=== PATIENT | female | born 1995 | race Caucasian/White ===

== ENCOUNTER 2021-03-16 13:15 | Outpatient (CLI) | payer SELFPAY ==
[2021-03-16 13:31] VITALS: BP 156/94; PULSE 116
[2021-03-16 13:46] VITALS: BP 124/85; PULSE 100
[2021-03-16 14:00] VITALS: BP 113/60; PULSE 96
[2021-03-16 14:15] VITALS: RESP 15; TEMP 36.2
[2021-03-16 14:26] VITALS: BMI 39.0
== END 2021-03-16 14:20 | disposition home or self-care (01) ==
LOC: OPOB 13:21 → OBGYN 13:25
PROVIDERS: Visit Provider Family Medicine
DX: O26.899 Other specified pregnancy related conditions, unspecified trimester (principal); Z3A.00 Weeks of gestation of pregnancy not specified; R10.9 Unspecified abdominal pain; N89.8 Other specified noninflammatory disorders of vagina
CPT/HCPCS: 59025; 99211

== ENCOUNTER 2021-04-11 18:27 | Outpatient (CLI) | payer SELFPAY ==
[2021-04-11] VITALS (11 sets, daily range): BP systolic 117–146; BP diastolic 76–93; PULSE 95–112; RESP 16; TEMP 36.2
[2021-04-11 19:47] LABS: Basophils % 0.2 %; Eosinophils % 0.2 %; Hematocrit 40.4 % (37.0-47.0); Hemoglobin 13.5 g/dL (11.5-15.3); Lymphocytes % 16.8 %; Mean Corpuscular HGB Conc 33.4 g/dL (30.0-36.0); Mean Corpuscular Volume 92.7 fl (81-99); Mean Platelet Volume 10.7 fL (7.4-10.4); Monocytes # 0.7 10^3/uL (0.2-0.9); Monocytes % 6.2 %; Neutrophils # 9.17 10^3/uL (1.8-7.7); Neutrophils % 76.3 %; Nucleated Red Blood Cells % 0 %; Platelet Count 227 10^3/cmm (130-400); Red Blood Count 4.36 10^6/uL (4.1-5.3)
--- NOTE | 2021-04-11 19:49 | PC.NURSE ---
Pain rated a 3/10 with contractions, but otherwise patient reports no pain.
[2021-04-11 20:07] LABS: Urine Creatinine 33 mg/dL (28-217); Urine Protein Random 4 mg/dL
[2021-04-11 20:16] LABS: UPRO/UCREAT Ratio 0.12 mg/mg CR
[2021-04-11 20:31] LABS: Alanine Aminotransferase 10 U/L (0-33); Albumin Level 3.4 g/dL (3.5-5.2); Alkaline Phosphatase 127 IU/L (35-105); Anion Gap 16.6 (5-19); Aspartate Amino Transferase 10 U/L (0-32); Blood Urea Nitrogen 7 mg/dL (6-20); Carbon Dioxide 19 mmol/L (22-29); Chloride 106 mmol/L (98-107); Globulin 2.9 g/dL (1.3-4.6); Glomerular Filtration Rate 268.9 mL/min (90-130); Glucose 112 mg/dL (65-115); Osmolality Calculated 285 mOsm/kg (285-295); Potassium 3.6 mmol/L (3.5-5.1); Sodium 138 mmol/L (136-145); Total Bilirubin 0.2 mg/dL (0.15-1.2); Total Protein 6.3 g/dL (6.6-8.7); Uric Acid 3.9 mg/dL (2.4-5.7)
[2021-04-11 20:32] LABS: Urine Appearance Clear (CLEAR); Urine Color Straw (Yellow)
[2021-04-11 20:33] LABS: Bilirubin Urine Neg (Negative); Blood Urine Neg (Negative); Glucose Urine UA Norm (Normal); Ketones Urine Negative (Negative); Nitrate Urine Negative (Negative); Protein Urine Neg (Negative); Specific Gravity, Urine 1.015 (1.005-1.030); pH Urine 6 (5-7)
[2021-04-11 20:34] LABS: Add Urine Microscopic? YES; Bacteria Urine TRACE /hpf; Leukocyte Esterase Urine Trace (Negative); Urobilinogen Urine Norm (Negative); WBC Urine 0-4 /hpf (0-5)
[2021-04-11 20:35] LABS: Add Urine Culture? No
--- NOTE | 2021-04-11 20:53 | PC.NURSE ---
HOME MEDICATIONS Patient also reports taking an herbal thyroid supplement, support tablet, and an easy birthing liquid. Patient reports that she does not know what is in the easy birthing liquid but that she takes it.
== END 2021-04-11 21:14 | disposition home or self-care (01) ==
LOC: OPOB 18:29 → OBGYN 18:31
PROVIDERS: Visit Provider Family Medicine
DX: O16.9 Unspecified maternal hypertension, unspecified trimester (principal); Z3A.00 Weeks of gestation of pregnancy not specified
CPT/HCPCS: 36415; 59025; 80053; 81001; 82570; 84156; 84550; 85025; 99211

== ENCOUNTER 2021-04-14 22:44 | Inpatient (IN) | payer SELFPAY ==
[2021-04-14 22:20] VITALS: RESP 17
[2021-04-14 22:31] VITALS: BP 148/91; PULSE 100
[2021-04-14 22:32] VITALS: TEMP 36.4
[2021-04-14 22:48] VITALS: RESP 15
[2021-04-14 23:12] LABS: Basophils % 0.1 %; Eosinophils % 0.2 %; Hematocrit 41.3 % (37.0-47.0); Hemoglobin 13.7 g/dL (11.5-15.3); Lymphocytes # 1.8 10^3/uL (0.8-4.8); Lymphocytes % 15.3 %; Mean Corpuscular HGB Conc 33.2 g/dL (30.0-36.0); Mean Corpuscular Hemoglobin 30.8 pg (28.0-34.0); Mean Corpuscular Volume 92.8 fl (81-99); Mean Platelet Volume 10.7 fL (7.4-10.4); Monocytes # 1.1 10^3/uL (0.2-0.9); Monocytes % 8.7 %; Neutrophils # 9.03 10^3/uL (1.8-7.7); Neutrophils % 75.3 %; Nucleated Red Blood Cells % 0 %; Platelet Count 233 10^3/cmm (130-400); Red Blood Count 4.45 10^6/uL (4.1-5.3)
[2021-04-14] MEDS: ampicillin 2,000 MG in sodium chloride 0.9% (plus) 50 ML 100 MG IV (23:20)
[2021-04-14] MEDS: dextrose 5%-lactated ringers 1,000 ML 125 ML IV (23:20)
[2021-04-14 23:23] VITALS: BP 108/66; PULSE 94
[2021-04-15] VITALS (26 sets, daily range): BP systolic 99–132; BP diastolic 56–84; PULSE 81–117; RESP 15–17; TEMP 35.9–37.2; O2SAT 99
[2021-04-15] MEDS: oxytocin 30 UNIT/500 ML BAG 600 UNIT IV (02:19)
[2021-04-15] MEDS: lidocaine 2% INJ 20 mL INJECTION (02:21)
--- NOTE | 2021-04-15 02:40 | P.PCNOB_ITS ---
Delivery Note: Date of delivery: April 15, 2021 Delivery: This is a 25-year-old G3, P2 at 39 weeks gestation who presented to labor and delivery in active labor. She was GBS positive and was started on ampicillin protocol. She declined an epidural for pain management. When she was 8 to 9 cm dilated she had artificial rupture of membranes with clear fluid. Rupture of membranes was less than 20 minutes prior to delivery. She had a normal spontaneous vaginal delivery of a viable female weight 3600 g Apgars 8 and 9 over an intact perineum. The was suctioned at delivery and placed on the mother's chest. The cord was clamped and cut. The placenta was delivered grossly intact and normal to inspection. There was a first-degree perineal laceration that was sutured using 3-0 chromic after injecting 1% lidocaine for anesthetic. EBL 200 mL A&P Assessment and plan (1) Normal spontaneous vaginal delivery: Status: Acute Coding Level of Care Code Acute Pipe Racker for Sunshine Cruz Diagnoses Normal spontaneous vaginal delivery O80
[2021-04-15] MEDS: miSOPROStol 200 mcg Tablet 800 MCG PR (03:12)
[2021-04-15 16:21] LABS: Hematocrit 38.1 % (37.0-47.0); Hemoglobin 12.6 g/dL (11.5-15.3); Mean Corpuscular HGB Conc 33.1 g/dL (30.0-36.0); Mean Corpuscular Hemoglobin 30.7 pg (28.0-34.0); Mean Corpuscular Volume 92.7 fl (81-99); Mean Platelet Volume 10.8 fL (7.4-10.4); Platelet Count 213 10^3/cmm (130-400); Red Blood Count 4.11 10^6/uL (4.1-5.3); Red Cell Distribution Width 13.1 % (12.1-15.1); White Blood Count 13.5 10^3/uL (4.0-10.0)
[2021-04-16 04:40] VITALS: BP 107/58; PULSE 74
[2021-04-16 04:41] VITALS: RESP 14
[2021-04-16 09:59] VITALS: TEMP 36.3
[2021-04-16 10:00] VITALS: BP 117/73; PULSE 100; RESP 14
[2021-04-16 16:32] VITALS: BP 136/90; PULSE 82; RESP 17; O2SAT 98
--- NOTE | 2021-04-17 12:20 | P.DS_ITS ---
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 Her was complicated by borderline intermittent -induced hypertension, not requiring medication. She has done well and is ambulating, tolerating a regular diet, has no pain and decreased vaginal bleeding. She is requesting discharge Information Peripartum Data: Infant Delivery Method: Vaginal Physical Exam Narrative: EXAM NARRATIVE: Alert and oriented sitting in bedside chair, lungs clear to auscultation, heart regular rate and rhythm, abdomen soft and nontender, fundus firm U- 2, nonpitting lower extremity edema, no calf tenderness Discharge Data Vitals: Last Vital Signs Temp 97.3 F L 04/16/21 09:59 Pulse 82 04/16/21 16:32 Resp 17 04/16/21 16:32 BP 136/90 04/16/21 16:32 Pulse Ox 98 04/16/21 16:32 Discharge Plan Discharge Patient Disposition: Home Prescriptions: Continued vitamin B complex Tablet 1 tab PO DAILY RF: 0 Probiotic 1 tab PO DAILY RF: 0 milk thistle 1 tab PO DAILY RF: 0 selenium 1 tab PO DAILY RF: 0 Discharge Orders: Discharge Order (Routine); Ordered 04/16/21 Ordered By: Ileana Lennon Referrals: Ileana Lennon MD [Physician] - 1 month Discharge Diet: Usual diet Discharge Activity: Limit activity as instructed Patient Instructions: Lanolin (On the skin), Perineal Care (GEN), Expression, Collection and Storage of Breast Milk (GEN), and Breast Engorgement (GEN), Bleeding (GEN), Breast Care for the Mother (GEN), OB Discharge Report, OB Food/Drug Interaction Guide, OB Home Care, OB Vaginal Deliveries, Abnormal Bleeding Discharge Attestations 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
== END 2021-04-16 17:31 | disposition home or self-care (01) | DRG 807 ==
PROVIDERS: Admitting Provider Family Medicine; Visit Provider Family Medicine
DX: O99.824 Streptococcus B carrier state complicating childbirth (principal); Z37.0 Single live birth; O70.0 First degree perineal laceration during delivery; Z3A.39 39 weeks gestation of pregnancy
CPT/HCPCS: 36415; 59025; 59409; 85025; 85027; 99211; J0290; J3010

== ENCOUNTER 2022-11-29 17:44 | Emergency (ER) | payer SELFPAY ==
[2022-11-29 17:59] VITALS: BP 166/122; PULSE 92; RESP 17; TEMP 36.8; O2SAT 100; BMI 41.4
--- NOTE | 2022-11-29 18:39 | USR_ITS ---
PROCEDURE INFORMATION: Exam: US First Trimester, Transabdominal and US , Transvaginal Exam date and time: 11/29/2022 6:52 PM Age: 26 years old Clinical indication: Condition or disease; Lmp or gestational age (weeks): 7w1d; Other: Spotting; 5th ; ; Additional info: 7-8 weeks preg; Spotting/pain LABS AND CLINICAL REPORTS: Last menstrual period start date: 10/08/2022 Gestational age (Established): 7 w 3 d Estimated due date (Established): 07/15/2023 TECHNIQUE: Imaging protocol: Real-time transabdominal obstetrical ultrasound of the maternal pelvis and a first trimester , less than 14 weeks 0 days, with image documentation. Transvaginal imaging was used for better evaluation of the fetus, adnexa, and/or cervix. COMPARISON: US OB >= 14 weeks fetus [id number] 12/11/2020 4:35 PM FINDINGS: Gestation: Mean gestational sac diameter 1.95 cm with EGA 7 weeks 1 day. No pole or yolk sac identified at this time. Blighted ovum versus early intrauterine . Embryonic/ heart rate: 124 bpm. Doppler ultrasound detected a pulse of 128 bpm which could be a small artery within the uterus. Extra-embryonic membranes/Placenta: Unremarkable. No subchorionic bleed. Amniotic fluid: Amniotic fluid and extra-amniotic fluid is normal for gestational age. BIOMETRY: Gestational age (AUA): 7 w 1 d Mean sac diameter: 2 cm. EGA (MSD) is 7 w 1 d MATERNAL: Uterus: Uterus measures 5.9 cm x 11.6 cm x 7.5 cm. 11.6 x 7.5 x 5.9 cm uterus. 11.6 x 5.9 x 7.5 cm uterus with estimated volume 271 cc. Cervix: Unremarkable. Right ovary/adnexa: 2.4 x 2.4 x 2.6 cm right ovary with estimated volume 7.6 cc. Left ovary/adnexa: 2.0 x 1.9 x 1.4 cm left ovary with estimated volume 2.9 cc. Intraperitoneal space: No intraperitoneal free fluid. US/US OB <= 14 weeks fetus [id number] IMPRESSION: 1. Mean gestational sac diameter 1.95 cm with EGA 7 weeks 1 day. 2. No pole or yolk sac identified at this time. Blighted ovum versus early intrauterine . . 3. Doppler ultrasound detected a pulse of 128 bpm which could be a small artery within the uterus. 4. Serial quantitative hCGs and/or followup ultrasound may be helpful.
--- NOTE | 2022-11-29 18:40 | ED_ITS ---
HPI - General Adult General: Chief complaint: COVID symptoms Stated complaint: 7 1/2 weeks, low grade fever, spotting Time Seen by Provider: 11/29/22 18:14 Source: patient and family () Mode of arrival: ambulatory Limitations: no limitations History of Present Illness: Patient is a 26-year-old female who presents to ED today along with her for complaints of not feeling well over the past 5 to 6 weeks. She states she feels poorly with body aches and fatigue. She feels like she gets winded easily although does not complain of shortness of breath at rest. No cough or congestion. Patient states a few weeks ago she saw some type of homeopathic provider who ran some blood tests and looked at her blood under a microscope and told her that her kidneys were not functioning good and that she had Lyme disease and that she was . She states she was given natural remedies. Denies any known tick bites/rashes/lesions. Patient states several days ago she began developing some lower back pain so was reportedly seen at [facility] and diagnosed with a UTI and placed on Augmentin. She states today she had a fever of 100.4. She denies flank pain. Denies dysuria, frequency, urgency. She reports vaginal spotting over the past few days-not increasing. She thinks she is roughly 7.5 weeks . She states she will have some pelvic pain/discomfort with coughing/sneezing. Onset (ago): week(s) Relieving factors: none Exacerbating factors: none Associated symptoms: Reports nausea; Deny chest pain, headache(s), rash, palpitations, syncope or vomiting Treatments prior to arrival: other (antibiotics, natural remedies) Review of Systems Const: Reports: fever(s) (highest 100.4), body aches and fatigue Eyes: Denies: change in vision, blurry vision, photophobia, floaters or seeing flashes ENMT: Denies: throat pain, odynophagia, ear or mastoid pain, nasal discharge, nasal congestion, post nasal drip or sinus pain Card: Reports: dyspnea on exertion; Denies: chest pain, palpitations, irregular heart rhythm, edema, swelling of feet/ankles, lightheadedness, syncope, pre-syncope, orthopnea, leg pain with exertion or acrocyanosis Resp: Denies: productive cough, non-productive cough, wheezing, hemoptysis or chest congestion GI: Reports: nausea; Denies: abdominal pain, vomiting or diarrhea : Denies: flank pain, difficulty voiding, dysuria, urinary frequency, uri nary urgency or urinary hesitancy Musc: Reports: back pain; Denies: neck pain, extremity pain, extremity swelling, joint pain or joint swelling Skin/Breast: Denies: rash Neuro: Denies: headache(s), numbness in extremities, weakness in extremities or sensory changes Physical Exam Const: COMMON NORMALS: no acute distress, patient oriented x3, no limitations, alert and well nourished GENERAL APPEARANCE: cooperative NUTRITIONAL APPEARANCE: obese ORIENTATION/CONSCIOUSNESS: Yes awake, Yes oriented to person, Yes oriented to place and Yes oriented to time HENMT: COMMON NORMALS: normocephalic and atraumatic HEAD & SCALP: normal to inspection, normocephalic and atraumatic Eye: GENERAL EYE: appearance normal, both eyes and all related structures Neck/C-Spine: COMMON NORMALS: full ROM, no lymphadenopathy, supple and no meningeal signs Resp: COMMON NORMALS: normal respiratory effort and clear to auscultation bilaterally AUSCULTATION: clear to auscultation bilaterally Cardio: COMMON NORMALS: regular rate and regular rhythm RATE: regular rate RHYTHM: regular rhythm GI: COMMON NORMALS: Normal to inspection, nondistended, normoactive bowel sounds present, Soft to palpation, non-tender, No hepatosplenomegaly present and no masses INSPECTION: Yes normal to inspection AUSCULTATION: Yes normoactive bowel sounds PALPATION: Yes Soft to palpation and Yes No hepatosplenomegaly present : COMMON NORMALS: Yes no CVA tenderness BLADDER/KIDNEY EXAM: Yes no CVA tenderness Back/Pelvis: COMMON NORMALS: no CVA tenderness, thoracic and lumbar spine normal to inspection, no thoracic nor lumbar tenderness, thoraco-lumbar ROM normal and straight leg raise negative bilaterally LUMBAR SPINE/LOWER BACK: Yes paraspinal muscle tenderness PELVIS: Yes buttocks normal SACROILIAC JOINTS: Yes SI joints normal SACRUM: no tenderness COCCYX: no tenderness Extremity: COMMON NORMALS: normal to inspection, full ROM, capillary refill normal, no joint enlargement, no clubbing, cyanosis or edema, no calf tenderness and no pedal edema GENERAL: Yes normal exam except as noted Neuro: JEANIE COMA SCALE: document GCS findings Jeanie coma scale eye opening: Spontaneous [place] coma scale verbal response: Orientated [place] coma scale motor response: Obey commands [place] coma scale total score: 15 COMMON NORMALS: patient oriented x3, moves all extremities, no focal motor deficits and no sensory deficits noted SENSORIUM/ORIENTATION: Yes alert, Yes oriented to person, Yes oriented to place and Yes oriented to time MENINGEAL SIGNS: Yes no meningeal signs Skin: COMMON NORMALS: no rashes or lesions noted GENERAL SKIN EXAM: no rashes or lesions noted Course Vital Signs: Vital signs: Vital Signs Temperature 98.3 F 11/29/22 17:59 Pulse Rate 92 11/29/22 20:30 Respiratory Rate 17 11/29/22 17:59 Blood Pressure 137/80 11/29/22 20:30 Pulse Oximetry 96 11/29/22 20:30 Oxygen Delivery Me thod Room Air 11/29/22 19:19 MDM - General Adult Medical Decision Making Patient's vital signs are stable. She clinically appears in no acute distress. Her blood work overall is nonactionable. UA with blood however she did report vaginal spotting and this was not a catheter specimen as requested. Her tick panel is pending but she reports being told she was positive for Lyme disease and only received natural remedy treatment. Patient is on Amoxicillin for a presumed UTI given to her by Logan Montoya. Doxycycline is not an option for treatment given her . We will extend her course of Amoxicillin for full 14 days which should cover for tick illness should this be the etiology of her not feeling well. Labs are not overly suggestive of tick illness. radioisotope technologist gave me a prelim report of a live IUP sitting low in her uterus heart tones. It sounds like these findings may have been conveyed to the patient as well. However on radiology read they did not detect a pole or yolk sac and questioned whether this was a blighted ovum versus early intrauterine . They stated the detected pulse could be a small artery within the uterus. Patient's hCG is almost 60,000 which would be normal for a progressing . Given the discrepancies I would like her to follow-up with Dr. Lennon this week. Referral has been placed for this. Lab Data 11/29/22 18:36 11/29/22 18:36 Radiology Impressions Ultrasound 11/29/22 18:39 IMPRESSION: 1. Mean gestational sac diameter 1.95 cm with EGA 7 weeks 1 day. 2. No pole or yolk sac identified at this time. Blighted ovum versus early intrauterine . . 3. Doppler ultrasound detected a pulse of 128 bpm which could be a small artery within the uterus. 4. Serial quantitative hCGs and/or followup ultrasound may be helpful. Laboratory Results WBC 9.0 10^3/uL (4.0-10.0) 11/29/22 18:36 RBC 4.63 10^6/uL (4.1-5.3) 11/29/22 18:36 Hgb 13.8 g/dL (11.5-15.3) 11/29/22 18:36 Hct 42.4 % (37.0-47.0) 11/29/22 18:36 MCV 91.6 fl (81-99) 11/29/22 18:36 MCH 29.8 pg (28.0-34.0) 11/29/22 18:36 MCHC 32.5 g/dL (30.0-36.0) 11/29/22 18:36 RDW 12.1 % (12.1-15.1) 11/29/22 18:36 Plt Count 280 10^3/cmm (130-400) 11/29/22 18:36 MPV 10.0 fL (7.4-10.4) 11/29/22 18:36 Neut % (Auto) 69.4 % 11/29/22 18:36 Lymph % (Auto) 22.3 % 11/29/22 18:36 [place] % (Auto) 7.1 % 11/29/22 18:36 Eos % (Auto) 0.7 % 11/29/22 18:36 Baso % (Auto) 0.2 % 11/29/22 18:36 Neut # (Auto) 6.22 10^3/uL (1.8-7.7) 11/29/22 18:36 Lymph # (Auto) 2.0 10^3/uL (0.8-4.8) 11/29/22 18:36 [place] # (Auto) 0.6 10^3/uL (0.2-0.9) 11/29/22 18:36 Eos # (Auto) 0.1 10^3/uL (0.0-0.8) 11/29/22 18:36 Baso # (Auto) 0.0 10^3/uL (0.0-0.1) 11/29/22 18:36 Nucleated RBC % (auto) 0 % 11/29/22 18:36 Nucleated RBCs # 0.0 /100WBC 11/29/22 18:36 Sodium 134 mmol/L (136-145) L 11/29/22 18:36 Potassium 4.0 mmol/L (3.5-5.1) 11/29/22 18:36 Chloride 102 mmol/L (98-107) 11/29/22 18:36 Carbon Dioxide 21 mmol/L (22-29) L 11/29/22 18:36 Anion Gap 15.0 (5-19) 11/29/22 18:36 BUN 7 mg/dL (6-20) 11/29/22 18:36 Creatinine 0.5 mg/dL (0.5-0.9) 11/29/22 18:36 GFR Calculation 148.0 mL/min (90-130) H 11/29/22 18:36 Glucose 91 mg/dL (65-115) 11/29/22 18:36 Calculated Osmolality 276 mOsm/kg (285-295) L 11/29/22 18:36 Calcium 9.2 mg/dL (8.5-10.5) 11/29/22 18:36 Total Bilirubin 0.3 mg/dL (0.15-1.2) 11/29/22 18:36 AST 13 U/L (0-32) 11/29/22 18:36 ALT 25 U/L (0-33) 11/29/22 18:36 Alkaline Phosphatase 115 U/L (35-105) H 11/29/22 18:36 Total Protein 7.4 g/dL (6.6-8.7) 11/29/22 18:36 Albumin 4.2 g/dL (3.5-5.2) 11/29/22 18:36 Globulin 3.2 g/dL (1.3-4.6) 11/29/22 18:36 TSH 2.95 uIU/mL (0.27-4.20) 11/29/22 18:36 Ser , Semi-Qnt 77050.00 mIU/mL 11/29/22 18:36 Urine Color Yellow (Yellow) 11/29/22 18:44 Urine Appearance Hazy (CLEAR) A 11/29/22 18:44 Urine pH 7 (5-7) 11/29/22 18:44 Ur Specific [place] 1.010 (1.005-1.030) 11/29/22 18:44 Urine Protein Neg (Negative) 11/29/22 18:44 Urine Glucose (UA) Norm (Normal) 11/29/22 18:44 Urine Ketones Negative (Negative) 11/29/22 18:44 Urine Blood 3+ (Negative) H 11/29/22 18:44 Urine Nitrate Negative (Negative) 11/29/22 18:44 Urine Bilirubin Neg (Negative) 11/29/22 18:44 Urine Urobilinogen Norm mg/dL (Negative) 11/29/22 18:44 Ur Leukocyte Esterase Negative (Negative) 11/29/22 18:44 Urine RBC 40-50 /hpf (0-2) H 11/29/22 18:44 Urine WBC 0-4 /hpf (0-5) H 11/29/22 18:44 Ur Squamous Epith Cells 0-4 /hpf (0-5) H 11/29/22 18:44 Amorphous Sediment Not Reportable 11/29/22 18:44 Urine Bacteria Trace /hpf (NONE) 11/29/22 18:44 Rho(D) Type Positive 11/29/22 18:36 Discharge Plan Discharge Patient Disposition: Home Clinical Impression: Abnormal obstetric ultrasound scan, Feeling unwell Condition: Stable Prescriptions: New amoxicillin 500 mg capsule 500 mg PO TID 14 Days Qty: 42 0RF No Action vitamin B complex Tablet 1 tab PO DAILY Probiotic 1 tab PO DAILY milk thistle 1 tab PO DAILY selenium 1 tab PO DAILY Discharge Orders: Discharge ED (Routine); Ordered 11/29/22 Ordered By: Patrizia Zuluaga Referrals: Ileana Lennon MD [Primary Care Provider] - Activity Restrictions/Additional Instructions: As we discussed we will go ahead and extend your antibiotic course to cover for possible Lyme disease. You have mentioned you already taking amoxicillin for treatment of UTI. I have written you a new prescription-you need to be on antibiotic therapy 3 times a day for a total of 14 days. As we discussed the radiologist thought your was possibly an anembryonic/blighted ovum vs early which is different information than what you possibly were told by our lidar technician. This needs to be followed up with your OB provider this week. Coding Level of Care Code ED Sergeant Of Corrections for Sunshine Cruz
[2022-11-29 18:52] LABS: Basophils % 0.2 %; Eosinophils # 0.1 10^3/uL (0.0-0.8); Eosinophils % 0.7 %; Hematocrit 42.4 % (37.0-47.0); Hemoglobin 13.8 g/dL (11.5-15.3); Lymphocytes % 22.3 %; Mean Corpuscular HGB Conc 32.5 g/dL (30.0-36.0); Mean Corpuscular Hemoglobin 29.8 pg (28.0-34.0); Mean Corpuscular Volume 91.6 fl (81-99); Monocytes # 0.6 10^3/uL (0.2-0.9); Monocytes % 7.1 %; Neutrophils # 6.22 10^3/uL (1.8-7.7); Neutrophils % 69.4 %; Nucleated Red Blood Cells % 0 %; Platelet Count 280 10^3/cmm (130-400); Red Blood Count 4.63 10^6/uL (4.1-5.3); Red Cell Distribution Width 12.1 % (12.1-15.1)
[2022-11-29 19:17] VITALS: O2SAT 95
[2022-11-29 19:19] VITALS: BP 141/83; PULSE 86; O2SAT 95
[2022-11-29 19:25] LABS: Add Urine Microscopic? YES; Bilirubin Urine Neg (Negative); Blood Urine 3+ (Negative); Glucose Urine UA Norm (Normal); Ketones Urine Negative (Negative); Leukocyte Esterase Urine Negative (Negative); Nitrate Urine Negative (Negative); Protein Urine Neg (Negative); Urine Appearance Hazy (CLEAR); Urine Color Yellow (Yellow); Urobilinogen Urine Norm (Negative); pH Urine 7 (5-7)
[2022-11-29 19:27] LABS: RBC Urine 40-50 /hpf (0-2); Squamous Epithelial Cell Urine 0-4 /hpf (0-5); WBC Urine 0-4 /hpf (0-5)
[2022-11-29 19:28] LABS: Add Urine Culture? Yes; Bacteria Urine TRACE /hpf
[2022-11-29 19:29] LABS: Thyroid Stimulating Hormone 2.95 uIU/mL (0.27-4.20)
[2022-11-29 19:42] LABS: Alanine Aminotransferase 25 U/L (0-33); Albumin Level 4.2 g/dL (3.5-5.2); Alkaline Phosphatase 115 U/L (35-105); Aspartate Amino Transferase 13 U/L (0-32); Blood Urea Nitrogen 7 mg/dL (6-20); Calcium 9.2 mg/dL (8.5-10.5); Carbon Dioxide 21 mmol/L (22-29); Chloride 102 mmol/L (98-107); Globulin 3.2 g/dL (1.3-4.6); Glucose 91 mg/dL (65-115); Osmolality Calculated 276 mOsm/kg (285-295); Sodium 134 mmol/L (136-145); Total Bilirubin 0.3 mg/dL (0.15-1.2); Total Protein 7.4 g/dL (6.6-8.7)
[2022-11-29 20:30] VITALS: BP 137/80; PULSE 92; O2SAT 96
--- NOTE | 2022-11-30 13:43 | PC.SOCIAL ---
F/u Dr. Lennon Consult received for f/u with Dr. Lennon; appt scheduled for 12/01 at 215. [facility] unable to reach her at this time. Will continue to try to reach.
[2022-12-01 14:24] LABS: Lyme AB Screen <0.90 index
[2022-12-06 17:44] LABS: RMSF IGG NOT DETECTED; RMSF IGM NOT DETECTED
[2022-12-08 17:25] LABS: E. Chaffeensis AB IGG <1:64; E. Chaffeensis AB IGM <1:20
== END 2022-11-29 20:33 | disposition home or self-care (01) ==
PROVIDERS: Family Medicine; Emergency Provider Physician Assistant; PCP Family Medicine
DX: O28.3 Abnormal ultrasonic finding on antenatal screening of mother (principal); Z3A.01 Less than 8 weeks gestation of pregnancy
CPT/HCPCS: 36415; 76801; 80053; 81001; 84443; 84702; 85025; 86618; 86666; 86757; 87086; 99284

== ENCOUNTER 2023-05-17 10:57 | Outpatient (CLI) | payer SELFPAY ==
[2023-05-17] VITALS (9 sets, daily range): BP systolic 121–159; BP diastolic 63–93; PULSE 81–99
== END 2023-05-17 13:02 | disposition home or self-care (01) ==
LOC: OPOB 10:57 → OBGYN 11:10
PROVIDERS: PCP Family Medicine; Visit Provider Family Medicine
DX: O26.899 Other specified pregnancy related conditions, unspecified trimester (principal); Z3A.00 Weeks of gestation of pregnancy not specified; R10.9 Unspecified abdominal pain
CPT/HCPCS: 59025; 99211

== ENCOUNTER 2023-06-23 22:30 | Inpatient (IN) | payer SELFPAY ==
[2023-06-23] VITALS (16 sets, daily range): BP systolic 114–173; BP diastolic 58–97; PULSE 103–126; RESP 18; TEMP 36.2–36.5; BMI 48.6
[2023-06-23] MEDS: lactated ringers 1,000 ML 999 ML IV (21:05)
[2023-06-23 22:58] LABS: Basophils % 0.2 %; Eosinophils # 0.1 10^3/uL (0.0-0.8); Eosinophils % 0.7 %; Hematocrit 38.2 % (36-47); Lymphocytes # 2.4 10^3/uL (0.8-4.8); Lymphocytes % 15.5 %; Mean Corpuscular Hemoglobin 29.8 pg (27-33); Mean Corpuscular Volume 87.6 fl (85-98); Mean Platelet Volume 11.1 fL (7.4-10.4); Monocytes # 1.5 10^3/uL (0.2-0.9); Neutrophils # 11.15 10^3/uL (1.8-7.7); Nucleated Red Blood Cells % 0 %; Platelet Count 295 10^3/cmm (157-399); Red Blood Count 4.36 10^6/uL (3.85-5.65); White Blood Count 15.25 10^3/uL (3.29-11.43)
[2023-06-23] MEDS: dextrose 5%-lactated ringers 1,000 ML 125 ML IV (23:45)
[2023-06-23] MEDS: ampicillin 2,000 MG in sodium chloride 0.9% (plus) 50 ML 100 MG IV (23:45)
[2023-06-24] VITALS (105 sets, daily range): BP systolic 110–192; BP diastolic 56–103; PULSE 92–171; RESP 16–18; TEMP 36.4–37.8; O2SAT 95–99
[2023-06-24] MEDS: fentaNYL 50 mcg/mL INJ 2mL IVP ×2 (01:15)
[2023-06-24] MEDS: ampicillin 1,000 MG in sodium chloride 0.9% (plus) 50 ML 100 MG IV ×4 (03:24→15:16)
[2023-06-24] MEDS: lactated ringers 1,000 ML 999 ML IV ×2 (04:04→07:19)
[2023-06-24] MEDS: oxytocin 30 UNIT/500 ML BAG IV (05:45)
[2023-06-24] MEDS: ROPivacaine syringe 100 MG/50 ML SYRINGE 10 MG EPIDURAL ×2 (08:39→12:16)
[2023-06-24] MEDS: dextrose 5%-lactated ringers 1,000 ML 125 ML IV ×2 (08:43→18:18)
--- NOTE | 2023-06-24 09:58 | P.ANESASSM_ITS ---
Pre-Anesthetic Assessment Height/Weight: Height 1.68 m Weight 136.758 kg Temp Pulse Resp BP Pulse Ox O2 Del Method 97.5 F L 106 H 16 126/65 98 Room Air 06/24/23 05:52 06/24/23 09:51 06/24/23 01:15 06/24/23 09:51 06/24/23 09:03 06/23/23 22:52 Epidural Familial anesthetic complications: None Was Beta Jose taken within 24 hours: N/A Was Clonidine taken within 24 hours: N/A Social No alcohol and No tobacco Exam alert, oriented x 3, clear to auscultation bilaterally and regular rate & rhythm Airway Mallampati: Class I Dentition: full Anesthetic Plan ASA status: 2 Anesthesia: Regional (specify below) Risk of > 500 ml blood loss (7ml/kg in children): Yes, adequate IV access and fluids planned Medications/Allergies Home Medications Medication Instructions Recorded Confirmed Last Taken Type Probiotic 1 tab PO DAILY 04/11/21 06/23/23 Unknown History milk thistle 1 tab PO DAILY 04/11/21 06/23/23 Unknown History selenium 1 tab PO DAILY 04/11/21 06/23/23 Unknown History vitamin B complex 1 tab PO DAILY 04/11/21 06/23/23 Unknown History escitalopram oxalate 20 mg tablet 20 mg PO 1XD 06/23/23 06/23/23 06/23/23 History (Lexapro) thyroid (pork) 60 mg tablet 60 mg PO AC 06/23/23 06/23/23 06/23/23 History ([place] Thyroid) 0800 Allergies Allergy/AdvReac Type Severity Reaction Status Date / Time No Known Allergies Allergy Verified 06/23/23 21:14 Current Medications Generic Name Dose Route Start Last Admin Trade Name Freq PRN Reason Stop Dose Admin Fentanyl 25 - 100 mcg 06/23/23 22:48 06/24/23 01:15 Fentanyl 50 Mcg/Ml Inj 2ml IVP 50 mcg Q1H PRN Administration SEVERE PAIN Dextrose/Lactated Ringer's 1,000 mls @ 125 mls/hr 06/23/23 23:00 06/24/23 08:43 Dextrose 5%-Lactated Ringers IV 125 mls/hr .Q8H SALENA Administration Lactated Ringer's 1,000 mls @ 999 mls/hr 06/23/23 22:48 06/24/23 04:04 Lactated Ringers IV 999 mls/hr .Q1H1M PRN Administration Per L&D Rescitation Protocol Ampicillin Sodium 1,000 mg/ 50 mls @ 100 mls/hr 06/24/23 03:15 06/24/23 07:46 Sodium Chloride IV Infused Q4H SALENA Infusion Protocol Oxytocin 30 unit in 500 mls @ 1 mls/hr 06/24/23 05:15 06/24/23 09:54 Pitocin IV 5 milliunit/min .Q24H SALENA 5 mls/hr Titration Protocol 1 MILLIUNIT/MIN Lactated Ringer's 1,000 mls @ 999 mls/hr 06/24/23 07:13 06/24/23 08:20 Lactated Ringers IV Infused .Q1H1M PRN Infusion See label comments Ropivacaine 100 mg in 50 mls @ 10 mls/hr 06/24/23 07:13 06/24/23 08:39 Naropin Syringe EPIDURAL 10 mls/hr .Q5H PRN Administration LABOR PAIN PFSH Anesthesia Female Reproductive History : 5 Data Anesthesia 06/23/23 20:45 Short CBC 06/23/23 Range/Units 20:45 WBC 15.25 H (3.29-11.43) 10^3/uL Hgb 13.00 (11.27-16.99) g/dL Hct 38.2 (36-47) % MCV 87.6 (85-98) fl Plt Count 295 (157-399) 10^3/cmm Neut % (Auto) 73.0 % Neut # (Auto) 11.15 H (1.8-7.7) 10^3/uL Blood Bank 06/23/23 20:45 Blood Type A Positive Rho(D) Type Rh positive Antibody Screen Negative Cardiac Studies: 2 No Data to Display
--- NOTE | 2023-06-24 09:58 | ANES.PROC ---
Anesthesia Procedures Procedure/Date: 06/24/23 Epidural: Time Out Performed: Yes Consents Signed: Procedure Consent Consent: requested by attending/covering physician, from patient, from other, risks and benefits reviewed and patient agrees to proceed Lumbar Level: L3-L4 Epidural position: sitting Epidural procedure: sterile prep of area, 1% lidocaine to numb the area, 18 g needle, negative for paresthesia passed, neg for paresthesia, test dose given, 1.5% xylocaine 1:200k epi (5), 0.2% Ropivacaine bolus ml (5), placed PCEA, no systemic response, sterile dressing applied, L.U.D. no apparent complications and 0.2% Ropiavacaine @ mls/hr (10) Additional Comments: JOHN at 6 cm, threaded to 12 cm, patient's feet warm after intial pump bolus
--- NOTE | 2023-06-24 12:19 | P.HPUD_ITS ---
Labor & Delivery H&P Update Date of Procedure: June 24, 2023 Date H&P Performed: 06/24/23 Admission Diagnosis: IUP at [id number] Active labor Planned procedure: Expectant management of labor and delivery
--- NOTE | 2023-06-24 12:19 | PM.OPHPUD ---
Labor & Delivery H&P Update Date of Procedure: June 24, 2023 Date H&P Performed: 06/24/23 Admission Diagnosis: IUP at [id number] Active labor Planned procedure: Expectant management of labor and delivery
--- NOTE | 2023-06-24 12:20 | P.PN_ITS ---
Subjective 2 Subjective: This is a 27-year-old G5, P3 at 37 weeks 0 days gestation who presented to labor and delivery last evening in active labor. When she first presented she was kendrick every 1 to 2 minutes and was only 4 cm dilated. Approximately 1.5 hours later she was already 5 to 6 cm dilated and still kendrick regularly. The patient was then admitted for expectant management. When she was 6 cm dilated her contractions began to space out every 5 to 6 minutes. After 6 hours she had not made any cervical change and was having moderate bloody show so decision was made to go ahead and start her on Pitocin to help augment her labor. She now has an epidural for pain management. The has been very ballotable and her water remains intact which has been slowing things down. Vitals/I&O/Wt Last Vital Signs Temp 97.5 F L 06/24/23 05:52 Pulse 106 H 06/24/23 12:07 Resp 16 06/24/23 01:15 BP 141/85 06/24/23 12:07 Pulse Ox 98 06/24/23 09:03 O2 Del Method Room Air 06/23/23 22:52 06/23/23 06/24/23 06/24/23 22:59 06:59 14:59 Intake Total 1000 / 1000 642.417 / 7329.011 5412.283 / 1511.283 Balance 1000 / 1000 642.417 / 7883.535 9690.283 / 1511.283 Weight last 48 hrs Weight 136.758 kg Physical Exam 2 Narrative: Tired appearing, sitting up in bed, appears comfortable with the epidural. Urinary Catheter Management: Driscoll: Cath Placed During This Visit: yes Urinary Catheter Date of Insertion: 06/24/23 Urinary Catheter Time of Insertion: 09:07 Data 06/23/23 20:45 A&P Assessment and plan (1) Arrested active phase of labor: We will start Pitocin (2) Normal intrauterine in third trimester: (3) Hypothyroidism affecting : Attestations 2 Medical Necessity Statement*: Expectant management of labor and delivery Coding Level of Care Code Acute Code for Chg Fwd Diagnoses Arrested active phase of labor O62.1 Normal intrauterine in third trimester Z34.93 Hypothyroidism affecting O99.280; E03.9
[2023-06-24] MEDS: miSOPROStol 200 mcg Tablet 800 MCG PR (17:16)
--- NOTE | 2023-06-24 17:19 | PM.DELIVERY ---
Delivery Note: Date of delivery: June 24, 2023 Procedure: Normal spontaneous vaginal delivery Delivering Physician: Ileana Lennon MD Estimated blood loss (mL): 300 Pre-Delivery Course: The patient had routine care at [facility]. Her estimated due date was 07/15/2023 she is blood type a positive antibody negative, hepatitis B nonreactive hepatitis C nonreactive, HIV nonreactive, rubella immune, GC chlamydia negative, RPR nonreactive, drug screen negative, Pap smear within normal limits, she declined Q testing, she passed her 1 hour glucose tolerance test, she was GBS positive Delivery: This is a 27-year-old G5, P3 who presented to labor and delivery at 36 weeks 6 days gestation complaining of regular contractions. She refused terbutaline. She received a 1 L bolus of fluid but continued to have regular contractions. After 1.5 hours her cervix had changed from 4 cm to 5 to 6 cm. She was admitted for expectant management. At 6 cm dilation her contractions began to space out and after 6 hours of position changes her exam remained the same. At this point her labor was augmented using Pitocin. She then received an epidural for pain management. The infant remained very high and ballotable. When she was about 8 cm dilated artificial rupture of membranes with clear fluid was performed. She then progressed rather well and had a normal spontaneous vaginal delivery of a viable male weight 4160 g, 9 pounds 3 ounces, Apgars 9 and 9 over an intact perineum. The infant was suctioned at delivery and placed on the mother's chest. The cord was clamped and cut. The placenta was delivered grossly intact and normal to inspection. There was a first-degree perineal laceration that was small and hemostatic so it did not require suturing. Mother and infant were doing well after delivery. A&P Assessment and plan (1) Normal spontaneous vaginal delivery: Routine care Coding Level of Care Code Acute Code for Chg Fwd Diagnoses Normal spontaneous vaginal delivery O80
[2023-06-24] MEDS: tranexamic acid 1,000 MG/100 ML PREMIX 600 MG IV (18:16)
[2023-06-24] MEDS: TRAMadol 50 mg Tablet PO (18:53)
[2023-06-24] MEDS: benzocaine-menthol 78 gm Canister 1 SPRAY TOPICAL (18:54)
[2023-06-24] MEDS: docusate sodium 100 mg Capsule PO (18:54)
[2023-06-24] MEDS: ibuprofen 800 mg tablet PO (19:59)
[2023-06-24 22:31] LABS: Glucose Point of Care 45 mg/dL (70-110)
[2023-06-25] VITALS (7 sets, daily range): BP systolic 117–138; BP diastolic 71–85; PULSE 84–106; RESP 16–18; TEMP 36.5–37.4; O2SAT 96–97
[2023-06-25 01:00] LABS: Glucose Point of Care 57 mg/dL (70-110)
[2023-06-25 07:14] LABS: Hematocrit 29.9 % (36-47); Mean Corpuscular HGB Conc 32.8 g/dL (30-55); Mean Corpuscular Hemoglobin 30.1 pg (27-33); Mean Corpuscular Volume 91.7 fl (85-98); Mean Platelet Volume 10.8 fL (7.4-10.4); Platelet Count 258 10^3/cmm (157-399); Red Blood Count 3.26 10^6/uL (3.85-5.65); Red Cell Distribution Width 13.4 % (12.1-15.1); White Blood Count 17.24 10^3/uL (3.29-11.43)
[2023-06-25] MEDS: ibuprofen 800 mg tablet PO ×2 (07:42→15:27)
[2023-06-25] MEDS: prenatal vitamin Capsule 1 CAP PO (07:43)
[2023-06-25] MEDS: TRAMadol 50 mg Tablet PO (07:43)
[2023-06-25] MEDS: docusate sodium 100 mg Capsule PO (07:43)
--- NOTE | 2023-06-25 08:07 | ANE.PACU2 ---
Inpatient post-anesthesia follow up: Airway intact: Yes Vital signs: Temperature 99.4 F Pulse Rate 91 Respiratory Rate 18 Blood Pressure 130/83 Pulse Oximetry 97 Oxygen Delivery Me thod Room Air Oxygen Flow Rate Fraction of Inspir ed Oxygen Hydration adequate: Yes Nausea and vomiting: No Pain level: 1 Mental status: Baseline
--- NOTE | 2023-06-25 12:06 | PC.NURSE ---
PT STATES THAT SHE HAD A LARGE CLOT AND BLEEDING WHEN SHE GOT UP TO BATHROOM, HAD TOLD HER THIS AM IF SHE PASSED ANYTHING HEAVY TO LET ME SEE IT AND SHE FLUSHED BEFORE SHOWING ME. FUNDUS FIRM NO FREEFLOW SEEN WITH MASSAGE. REMINDED HER AND SPOUSE AGAIN IF SHE PASSED CLOTS OR FLOW WAS HEAVY THAT I NEEDED TO SEE IT SO THAT I COULD WRITE IT DOWN, VOICES UNDERSTANDING AT THIS TIME.
--- NOTE | 2023-06-25 12:56 | P.PN_ITS ---
Subjective 2 Subjective: After delivery she continued to have moderate bleeding and was started on transects Bhumika acid. Since then she says that her bleeding is about average. Vitals/I&O/Wt Last Vital Signs Temp 98.5 F 06/25/23 11:30 Pulse 88 06/25/23 11:30 Resp 16 06/25/23 11:30 BP 127/79 06/25/23 11:30 Pulse Ox 97 06/25/23 06:59 O2 Del Method Room Air 06/25/23 06:59 06/24/23 06/25/23 06/25/23 22:59 06:59 14:59 Intake Total 1437.934 / 4029.717 Balance 1437.934 / 4029.717 Weight last 48 hrs Weight 136.758 kg Physical Exam 2 Narrative: Alert and oriented, sitting up in bed feeding infant, heart regular rate and rhythm, lungs clear to auscultation bilaterally, abdomen soft and nontender, extremities have 2+ edema but no calf tenderness Urinary Catheter Management: Driscoll: Cath Placed During This Visit: yes Urinary Catheter Date of Insertion: 06/24/23 Urinary Catheter Time of Insertion: 09:07 Data 06/25/23 06:42 A&P Assessment and plan (1) Normal spontaneous vaginal delivery: Routine care (2) hemorrhage, delivered, current hospitalization: The patient had a history of this with prior . She was given 800 mcg of Cytotec after delivery but continued to have some moderate bleeding so she was started on tranexamic acid. After that her bleeding seemed to become more average to light. Attestations 2 Medical Necessity Statement*: Routine care Coding Level of Care Code Acute Code for Chg Fwd Diagnoses Normal spontaneous vaginal delivery O80 hemorrhage, delivered, current hospitalization O72.1
[2023-06-26 04:00] VITALS: BP 112/75; PULSE 84; RESP 18; TEMP 37.3
--- NOTE | 2023-06-26 09:02 | P.DS_ITS ---
Discharge Providers Date of Admission: 06/23/23 22:30 Date of Discharge: June 26, 2023 Attending Provider at Admission: Ileana Lennon MD Attending Provider at Discharge: Ileana Lennon MD Primary Care Provider: Ileana Lennon MD Diagnoses at Discharge Discharge Diagnosis (1) Normal spontaneous vaginal delivery: Status: Acute (2) hemorrhage, delivered, current hospitalization: Status: Acute Reason for Visit Reason for Visit: contractions Hospital Course Hospital Course This is a 27-year-old G5 now P4 who was admitted in active labor at 36 weeks 6 days gestation. She delivered at 37 weeks 0 days gestation a large for gestational age male . Mother had moderate vaginal bleeding after delivery and was given a dose of Cytotec and transecsemic acid. She was ambulating, tolerating a regular diet, and had good pain control on the day of discharge Physical Exam Narrative: Alert and oriented, resting in bed, heart regular rate and rhythm, lungs clear to auscultation bilaterally, abdomen soft and nontender, extremities have 2+ edema but no calf tenderness Urinary Catheter Management: Driscoll: Cath Placed During This Visit: yes Urinary Catheter Date of Insertion: 06/24/23 Urinary Catheter Time of Insertion: 09:07 Discharge Data Studies Completed and Pending Laboratory Results WBC 17.24 10^3/uL (3.29-11.43) H 06/25/23 06:42 RBC 3.26 10^6/uL (3.85-5.65) L 06/25/23 06:42 Hgb 9.80 g/dL (11.27-16.99) L 06/25/23 06:42 Hct 29.9 % (36-47) L 06/25/23 06:42 MCV 91.7 fl (85-98) 06/25/23 06:42 MCH 30.1 pg (27-33) 06/25/23 06:42 MCHC 32.8 g/dL (30-55) 06/25/23 06:42 RDW 13.4 % (12.1-15.1) 06/25/23 06:42 Plt Count 258 10^3/cmm (157-399) 06/25/23 06:42 MPV 10.8 fL (7.4-10.4) H 06/25/23 06:42 Neut % (Auto) 73.0 % 06/23/23 20:45 Lymph % (Auto) 15.5 % 06/23/23 20:45 [place] % (Auto) 10.0 % 06/23/23 20:45 Eos % (Auto) 0.7 % 06/23/23 20:45 Baso % (Auto) 0.2 % 06/23/23 20:45 Neut # (Auto) 11.15 10^3/uL (1.8-7.7) H 06/23/23 20:45 Lymph # (Auto) 2.4 10^3/uL (0.8-4.8) 06/23/23 20:45 [place] # (Auto) 1.5 10^3/uL (0.2-0.9) H 06/23/23 20:45 Eos # (Auto) 0.1 10^3/uL (0.0-0.8) 06/23/23 20:45 Baso # (Auto) 0.0 10^3/uL (0.0-0.1) 06/23/23 20:45 Nucleated RBC % (auto) 0 % 06/23/23 20:45 Nucleated RBCs # 0.0 /100WBC 06/23/23 20:45 POC Glucose 57 mg/dL (70-110) L 06/24/23 22:58 Blood Type A Positive 06/23/23 20:45 Rho(D) Type Rh positive 06/23/23 20:45 Antibody Screen Negative 06/23/23 20:45 Vitals Last Vital Signs Temp 99.1 F 06/26/23 04:00 Pulse 84 06/26/23 04:00 Resp 18 06/26/23 04:00 BP 112/75 06/26/23 04:00 Pulse Ox 97 06/25/23 06:59 O2 Del Method Room Air 06/25/23 06:59 Discharge Plan Discharge Patient Disposition: Home Condition: Stable Prescriptions: Continued vitamin B complex Tablet 1 tab PO DAILY Probiotic 1 tab PO DAILY milk thistle 1 tab PO DAILY selenium 1 tab PO DAILY [place] Thyroid 60 mg tablet 60 mg PO AC Lexapro 20 mg tablet 20 mg PO 1XD Discharge Orders: Discharge Order (Routine); Ordered 06/26/23 Ordered By: Ileana Lennon Discharge Diet: Usual diet Discharge Activity: Limit activity as instructed Patient Instructions: Opioid Safety Activity Restrictions/Additional Instructions: Nothing per vagina for 6 weeks. Discharge Attestations Time Spent in Discharge Care*: less than 30 min Quality Metrics Clinical Quality Measures [ No reported AMI, CVA or VTE this stay] Coding Level of Care Code Acute Code for Chg Fwd Diagnoses Normal spontaneous vaginal delivery O80 hemorrhage, delivered, current hospitalization O72.1
[2023-06-26] MEDS: ferrous sulfate EC 325 mg Tablet PO (10:26)
[2023-06-26] MEDS: docusate sodium 100 mg Capsule PO (10:29)
[2023-06-26] MEDS: ibuprofen 800 mg tablet PO (10:29)
[2023-06-26 10:30] VITALS: BP 107/70; PULSE 103; RESP 18
[2023-06-26 11:38] VITALS: RESP 18; TEMP 37.1
[2023-06-26 16:54] VITALS: BP 130/83; PULSE 91; RESP 18; TEMP 37.4
[2023-06-26 17:00] VITALS: BP 130/83; PULSE 91; RESP 18; TEMP 37.4
[2023-06-26 17:36] VITALS: BP 130/83; PULSE 91; RESP 18; TEMP 37.4
== END 2023-06-26 17:30 | disposition home or self-care (01) | DRG 807 ==
LOC: OPOB 22:30 → OBGYN 22:35
PROVIDERS: Admitting Provider Family Medicine; PCP Family Medicine; Visit Provider Family Medicine
DX: O99.824 Streptococcus B carrier state complicating childbirth (principal); Z37.0 Single live birth; O62.1 Secondary uterine inertia; O99.284 Endocrine, nutritional and metabolic diseases complicating childbirth; O70.0 First degree perineal laceration during delivery; O36.63X0 Maternal care for excessive fetal growth, third trimester, not applicable or unspecified; E03.9 Hypothyroidism, unspecified; O72.1 Other immediate postpartum hemorrhage; Z3A.37 37 weeks gestation of pregnancy
CPT/HCPCS: 36415; 36416; 51702; 59025; 59409; 82962; 85025; 85027; 86850; 86900; 96374; 99211; J0290; J2590; J2795; J3010; J7120; J7121